=== PATIENT | male | born 1990 | race Caucasian/White ===

== ENCOUNTER 2017-09-30 12:26 | Day surgery (SDC) | payer OTHER ==
[~2017-09-30 12:26] MED LIST: Buffered Lidocaine 0.9% SYRIN* 5 ML/SYR SYRINGE INTRADERM ONE
[2017-09-30] MEDS ORDERED: Clindamycin 900 MG IVPREMIX(* 900 MG/50 ML SDV IV ONE (12:55)
[2017-09-30] MEDS ORDERED: Bupivacaine 0.25% SDV* 30 ML ONE (15:19)
[2017-09-30] MEDS ORDERED: Lidocain 1% EPI 1:100,000 * 30 ML MDV ONE (15:20)
[2017-09-30] MEDS ORDERED: Bupivacaine 0.5% SDV PF* 30ML VIAL ONE (15:20)
[2017-09-30] MEDS ORDERED: Midazolam* 1 MG/ML 2 ML VIAL (2 MG) ONE (15:37)
[2017-09-30] MEDS ORDERED: fentaNYL* 50 MCG/ML 2 ML VIAL (100 MCG VIAL) ONE (15:37)
[2017-09-30] MEDS ORDERED: Lidocaine 2% MPF* 2 ML VIAL ONE (16:44)
[2017-09-30 17:20] VITALS: BP 127/61
== END 2017-09-30 17:32 | disposition home or self-care (01) ==
LOC: OREAST 12:26
PROVIDERS: ATTEND Plastic Surgery
DX: L72.8 Other follicular cysts of the skin and subcutaneous tissue (principal)
CPT/HCPCS: 88304; J2250; J3010